=== PATIENT | male | born 1985 | race Caucasian/White ===

== ENCOUNTER 2022-04-08 02:33 | Emergency (ER) | payer MEDICAID ==
[2022-04-08] MEDS ORDERED: Lidocaine 1% with EPINEPHrine 1:100,000 50 ML MDV INFILT ONE (02:45)
[2022-04-08] MEDS ORDERED: Acetaminophen/HYDROcodone 325-10 MG Tab PO ONE (03:35)
[2022-04-08] MEDS ORDERED: Acetaminophen/HYDROcodone 325-10 MG Tab ONE (03:45)
== END 2022-04-08 03:35 | disposition home or self-care (01) ==
LOC: LB.ED 02:33
DX: S42.035A Nondisplaced fracture of lateral end of left clavicle, initial encounter for closed fracture (principal); S01.112A Laceration without foreign body of left eyelid and periocular area, initial encounter; Y04.0XXA Assault by unarmed brawl or fight, initial encounter
CPT/HCPCS: 12013; 73030-LT; 99283; A9270-GY